=== PATIENT | male | born 1995 | race Caucasian/White ===

== ENCOUNTER 2023-10-08 09:05 | Emergency (ER) | payer BC ==
[~2023-10-08] VITALS: Ht 180.3 cm; Wt 72.6 kg
[2023-10-08 09:08] VITALS: BP_SYST 120; PULSE 95; RESP 20; TEMP 98.8; O2SAT 96
[2023-10-08] MEDS ORDERED: ALBU2.5V7 INH (09:34)
[2023-10-08] MEDS ORDERED: PRED20TA PO (09:34)
[2023-10-08] MEDS ORDERED: ALBMDI INH (09:34)
[2023-10-08 10:20] VITALS: BP_SYST 120; PULSE 95; RESP 20; TEMP 98.8; O2SAT 96
== END 2023-10-08 09:50 | disposition home or self-care (01) ==
LOC: SED 09:05
DX: J45.909 Unspecified asthma, uncomplicated (principal); R07.81 Pleurodynia; R06.02 Shortness of breath; Z79.899 Other long term (current) drug therapy
CPT/HCPCS: 93005; 99283

== ENCOUNTER 2023-11-07 08:46 | Emergency (ER) | payer BC ==
[~2023-11-07] VITALS: Ht 180.3 cm; Wt 65.8 kg
[~2023-11-07 08:46] MED LIST: ALBMDI INH; ALBU2.5V7 INH; PRED20TA PO
[2023-11-07 09:01] VITALS: BP_SYST 110; PULSE 98; RESP 18; TEMP 99.2; O2SAT 95
[2023-11-07] MEDS ORDERED: ALBMDI INH (09:19)
[2023-11-07 09:36] VITALS: BP_SYST 110; PULSE 98; RESP 18; TEMP 99.2; O2SAT 95
== END 2023-11-07 09:30 | disposition home or self-care (01) ==
LOC: SED 08:46
DX: J45.909 Unspecified asthma, uncomplicated (principal); Z76.0 Encounter for issue of repeat prescription; Z79.899 Other long term (current) drug therapy
CPT/HCPCS: 99281

== ENCOUNTER 2024-02-06 12:33 | Emergency (ER) | payer BC ==
[~2024-02-06] VITALS: Ht 180.3 cm; Wt 56.7 kg
[2024-02-06 12:39] VITALS: BP_SYST 123; PULSE 112; RESP 18; TEMP 98.3; O2SAT 95
[2024-02-06 13:31] VITALS: BP_SYST 121; PULSE 82; RESP 18; TEMP 98.3; O2SAT 98
== END 2024-02-06 13:31 | disposition home or self-care (01) ==
LOC: SED 12:33
DX: J45.909 Unspecified asthma, uncomplicated (principal); Z76.0 Encounter for issue of repeat prescription; Z79.899 Other long term (current) drug therapy
CPT/HCPCS: 99281